=== PATIENT | male | born 1980 | race Caucasian/White ===

== ENCOUNTER 2016-04-15 07:34 | Emergency (ER) | payer SELFPAY ==
[2016-04-15] MEDS ORDERED: KETOROLAC TROMETHAMINE 60 MG/2 ML VIAL ONE (08:20)
--- NOTE | 2016-04-15 08:44 | RAD ---
Clinical Indication: Fall. Initial encounter. Comparison: None. Findings: Three views of the right shoulder. Bones: No fracture or dislocation. Diastases of the AC joint is identified measuring approximately 1.4 cm. Osseous excrescence is noted along the expected region of the cortical clavicular ligament, likely relating to the prior AC joint separation. Small well-corticated ossific bodies are noted about the distal aspect of clavicle which may relate to the patient's prior injury. Joints: Unremarkable. Soft tissue: Normal. Limited evaluation of the right hemithorax: Unremarkable. Impression: No fracture or dislocation. Findings of prior AC joint separation.
== END 2016-04-15 09:11 | disposition home or self-care (01) ==
LOC: ED 07:34
DX: S46.911A Strain of unspecified muscle, fascia and tendon at shoulder and upper arm level, right arm, initial encounter (principal); W00.0XXA Fall on same level due to ice and snow, initial encounter; Y92.008 Other place in unspecified non-institutional (private) residence as the place of occurrence of the external cause
CPT/HCPCS: 73030; 99283 ×2; 96372; J1885